=== PATIENT | female | born 1990 | race Caucasian/White ===

== ENCOUNTER 2016-12-25 16:33 | Emergency (ER) | payer OTHER ==
[~2016-12-25] VITALS: Wt 69.0 kg
[~2016-12-25 16:33] MED LIST: FERR27TA PO; NITR-58 PO; PREN-39 PO
[2016-12-25] MEDS ORDERED: METOCLOPRAMIDE 10 MG INJ IV STA (17:42)
[2016-12-25] MEDS ORDERED: SOD CHLORIDE 0.9% 1,000 ML IV STA (17:42)
[2016-12-25] MEDS ORDERED: KETOROLAC 30 MG INJ IV STA (17:42)
[2016-12-25] MEDS ORDERED: DIPHENHYDRAMINE 50 MG INJ IV STA (17:42)
--- NOTE | 2016-12-25 18:44 | RADRPT ---
PROCEDURE: CT Brain without. CLINICAL INDICATION: Occipital headache on the left TECHNIQUE: A CT of the brain was performed utilizing axial sections from the skull base through th e vertex without contrast. The scan was reviewed in soft tissue brain and high frequency resolution bone algorithm windows. Images were reviewed on a high-resolution PACS workstation. The exam DLP = 555 mGy-cm. One or more of the following dose reduction techniques were used: Automated exposure control Adjustment of the mA and/or kV according to patient size. Use of iterative reconstruction technique. COMPARISON: None available FINDINGS: The ventricles and sulci are symmetric and normal in size and morphology. There is no acute intracr anial hemorrhage, an acute large territorial infarct, an abnormal extra-axial fluid collection, or a space-occupying intracranial mass. There is no mass effect or midline shift. The schneider-white matte r differentiation is intact. The posterior fossa, brainstem, and basal cisterns are unremarkable. The subcutaneous soft tissues and scalp are unremarkable. There are no acute fractures. The visual ized mastoid air cells and paranasal sinuses are clear with a small focus of mucosal thickening with in the posterior right ethmoid air cells. The visualized bilateral globes and orbits are unremarkabl e. RPTAT: ZZ IMPRESSION: No acute intracranial abnormality. .Priscilla Cruz MD, MD Date Time Electronically viewed and signed by .Priscilla Cruz MD, on 12/25/2016 18:43 .T/
--- NOTE | 2016-12-25 19:05 | ERD ---
ER Documentation Chief Complaint Date/Time DATE: 12/25/16 Chief Complaint Left-sided headed x 2 days HPI The patient is a 26-year-old female who presents to the Emergency Department with complaint of a left-sided headache for the past 2 days. The patient reports that her pain was [id number], and localized to the left parietal and occipital regions of her head. She notes that she has experienced headaches in the past, but never to these regions of her head. Additionally, she notes that in the past, she has been able to take Ibuprofen and obtain full relief of pain. However, since onset of this headache, she has taken Ibuprofen and Excedrin, with only minimal relief. She denies any visual changes, diplopia , blurred vision or vision loss. Denies nausea or vomiting. Denies neck pain or neck stiffness. Denies fevers or chills. Denies recent URI-type symptoms. The patient rates her current pain as 8/10. She notes that even though this headache is somewhat different than those she has experiencing previously ( location, not responding to Ibuprofen), it is not the worst headache of her life. She denies photophobia. The patient notes that approximately 4 years ago her mother was experiencing an occipital headache. Shortly afterwards she , and upon further evaluation was found to have two live tapeworms in her brain. The patient is concerned, as her current headache is somewhat localized to the occipital region, and is therefore requesting that CT imaging be performed. She states that she is aware of the added risk of radiation of exposure with CT imaging, but she would nevertheless still like the imaging to be done. ROS All systems reviewed and are negative except as per history of present illness. Medications Home Meds Active Scripts Naproxen* (Naproxen*) 500 Mg Tablet, 500 MG PO BID Y for PAIN, #30 TAB Prov:KRISTYN ROME PA-C 12/25/16 Nitrofurantoin Monohyd Macrocr* (Macrobid*) 100 Mg Capsr, 100 MG PO BID for 7 Days, CAP Prov:LANCE CRUZ NP 07/26/15 Reported Medications Ferrous Sulfate (Iron) 1 Tab Tablet, 1 TAB PO DAILY 03/26/12 Vits W-Ca,Fe,Fa(<1MG) ( Vitamins) 1 Tab Tablet, TAB PO DAILY 03/26/12 [None] No Conflict Check 7/22/10 Allergies Allergies: Coded Allergies: No Known Allergy (Verified , 07/26/15) PMhx/Soc History of Surgery: No Anesthesia Reaction: No Hx Neurological Disorder: No Hx Respiratory Disorders: No Hx Cardiac Disorders: No Hx Psychiatric Problems: No Hx Miscellaneous Medical Probl: No Hx Alcohol Use: No Hx Substance Use: No Hx Tobacco Use: No Smoking Status: Never smoker Physical Exam Vitals Vital Signs Date Time Temp Pulse Resp B/P Pulse Ox O2 Delivery O2 Flow Rate FiO2 12/25/16 19:17 98.2 75 18 112/65 100 Room Air 12/25/16 17:01 98.8 88 20 111/73 98 Physical Exam GENERAL: Well-developed, well-nourished, in no acute distress. HEENT: Head is normocephalic, atraumatic. No scleral pallor or icterus. Pupils equal, round and reactive to light. Extraocular movements intact. Conjunctiva pink. No nystagmus. No photophobia. Bilaterally tympanic membranes are clear with no evidence of erythema, effusion or dulling of the light reflex. Moist mucous membranes. No pharyngeal erythema or exudates. Uvula is midline. NECK: Supple. No masses, no tenderness, no lymphadenopathy. Trachea midline. No nuchal rigidity. Full range of motion. No meningismus. RESPIRATORY: Lungs are clear to auscultation bilaterally. Equal breath sounds. Normal expiratory effort. CARDIOVASCULAR: Regular rate and rhythm. S1 and S2 normal. No murmurs, rubs, or gallops. GASTROINTESTINAL: Abdomen is soft, nontender, and nondistended. FLANK: No CVA tenderness, no mass or swelling. BACK: No midline tenderness. No paraspinal tenderness. Spine curve normal. No deformities. EXTREMITIES: No clubbing, cyanosis, or edema. Normal skin perfusion. Full range of motion of both the upper and lower extremities bilaterally. Muscle tone is normal. No focal swelling or erythema. Distal pulses are palpable, 2+ bilaterally. Capillary refill is less than 2 seconds. NEUROLOGIC: The patient is alert, awake, and oriented x 3. No focal neurologic deficits. Cranial nerves II-XII intact. Gait is observed and normal. There is no ataxia. Motor normal in all extremities. Sensation grossly intact. Coordination normal. Speech is normal. Normal receptionist scheduler strength bilaterally. Normal plantar flexion. INTEGUMENT: Skin is clean, dry and intact. No rashes, lesions or petechiae present. Normal turgor. PSYCHIATRIC: Appropriate; Cooperative. Results 24 hrs Current Medications Medications (Trade) Dose Ordered Sig/Joseph Route PRN Reason Start Time Stop Time Status Last Admin Dose Admin Sodium Chloride (NS) 1,000 ml @ 1,000 mls/hr Q1H STAT IV 12/25/16 17:42 12/25/16 18:41 DC 12/25/16 18:20 Metoclopramide HCl (Reglan) 10 mg ONCE STAT IV 12/25/16 17:42 12/25/16 17:43 DC 12/25/16 18:19 Ketorolac Tromethamine (Toradol) 30 mg ONCE STAT IV 12/25/16 17:42 12/25/16 17:43 DC 12/25/16 18:19 Diphenhydramine HCl (Benadryl) 25 mg ONCE STAT IV 12/25/16 17:42 12/25/16 17:43 DC 12/25/16 18:19 Procedures/MDM The patient's case as reviewed and discussed with Dr. Sun, who agrees with the plan of care including treatment and advanced imaging as appropriate. DIAGNOSTIC TESTS AND INTERPRETATION: PROCEDURE: CT Brain without. CLINICAL INDICATION: Occipital headache on the left TECHNIQUE: A CT of the brain was performed utilizing axial sections from the skull base through the vertex without contrast. The scan was reviewed in soft tissue brain and high frequency resolution bone algorithm windows. Images were reviewed on a high-resolution PACS workstation. The exam DLP = 555 mGy-cm. One or more of the following dose reduction techniques were used: Automated exposure control Adjustment of the mA and/or kV according to patient size. Use of iterative reconstruction technique. COMPARISON: None available FINDINGS: The ventricles and sulci are symmetric and normal in size and morphology. There is no acute intracranial hemorrhage, an acute large territorial infarct, an abnormal extra-axial fluid collection, or a space-occupying intracranial mass. There is no mass effect or midline shift. The schneider-white matter differentiation is intact. The posterior fossa, brainstem, and basal cisterns are unremarkable. The subcutaneous soft tissues and scalp are unremarkable. There are no acute fractures. The visualized mastoid air cells and paranasal sinuses are clear with a small focus of mucosal thickening within the posterior right ethmoid air cells. The visualized bilateral globes and orbits are unremarkable. IMPRESSION:No acute intracranial abnormality. .Priscilla Cruz MD, MD Date Time Electronically viewed and signed by .Priscilla Cruz MD, on 12/25/2016 18: 43 MEDICAL DECISION MAKING: This is a 26-year-old female presenting to the emergency department with a left parietal/occipital headache for the past 2 days. The patient had no significant abnormalities on physical examination, exhibited no altered mental status, neurologic deficits or meningeal signs. The differential diagnosis includes, but is not limited to, subarachnoid hemorrhage, intracerebral bleeding, cerebral aneurysm, meningitis, encephalitis , brain abscess, embolic stroke, brain tumor, temporal arteritis, sinusitis, migraine headache, tension headache, acute glaucoma, cluster headache, pseudotumor cerebri, encephalopathy. No acute abnormalities were noted on head CT ordered. Her condition improved during her stay. After rest and administration of Toradol, Benadryl, Reglan and a liter of fluids the patient reports no new complaints and resolved pain. Upon my review and interpretation of the patient's presentation and overall ER course, I believe the patient's symptoms are most consistent with a headache, now resolved. At this time, the patient is in stable condition and therefore can be discharged home with a prescription for Naproxen and given strict return precautions for signs of deteriorating or worsening condition. She is advised to follow up with her primary care provider for reevaluation and further management within 2-3 days, or to return to the ER sooner for any worsening symptoms. I shared my medical decision making and plan with the patient at length and in great detail, and the patient verbally understands and agrees with the plan for further observation and care as an outpatient. At the time of discharge, all questions were answered. Departure Diagnosis: Primary Impression: Headache Headache type: unspecified Headache chronicity pattern: acute headache Intractability: not intractable Qualified Code: R51 - Acute nonintractable headache, unspecified headache type Condition: Stable Patient Instructions: Headache, Unspecified, Self-Care for Headaches Additional Instructions: Call your primary care doctor TOMORROW for an appointment during the next 2-3 days.See the doctor sooner or return here if your condition worsens before your appointment time. KRISTYN ROME PA-C Dec 25, 2016 19:05
[2016-12-25] MEDS ORDERED: NAPR-688 PO (19:06)
[2016-12-25 19:17] VITALS: BP 112/65; PULSE 75; RESP 18; TEMP 98.2
== END 2016-12-25 19:17 | disposition home or self-care (01) ==
LOC: FTE 16:33
DX: R51 Headache (principal)
CPT/HCPCS: 70450; 96374; 96375; J1200; J1885; J2765; J7030; Z7502